=== PATIENT | male | born 1995 | race Caucasian/White ===

== ENCOUNTER 2017-12-26 20:06 | Emergency (ER) | payer OTHER ==
--- NOTE | 2017-12-26 20:16 | ER Report ---
History and Physical Time Seen By MD: 20:16 Hx. of Stated Complaint: CUT LEFT THUMB DOING DISHES HPI/ROS CHIEF COMPLAINT: Laceration HISTORY OF PRESENT ILLNESS: This is a 22-year-old male who presents to the emergency department for laceration to his left thumb. Patient states that about 20-30 minutes prior to arrival he was washing a wine glass it broke lacerating the base of his left some on the palmar side. The laceration does appear to have lacerated the flexor tendon. Bleeding is controlled. No other lacerations or injuries identified. REVIEW OF SYSTEMS: Respiratory: No cough, no dyspnea. Cardiovascular: No chest pain, no palpitations. Gastrointestinal: No vomiting, no abdominal pain. Musculoskeletal: No back pain. Integument: As above. Allergies: Coded Allergies: No Known Drug Allergies (Unverified , 12/26/17) Home Meds Active Scripts Cephalexin 500 Mg Tab (KEFLEX 500 MG TAB) 500 Mg Tablet, 500 MG PO Q6H, #28 TAB 0 Refills Prov:KUSUM HAWK BENEFITS TECHNICIAN-BC 12/26/17 Past Medical/Surgical History The patient has a past medical surgical history of wisdom tooth extraction. Reviewed Nurses Notes: Yes Constitutional Vital Sign - Last 24 Hours 12/26/17 12/26/17 12/26/17 12/26/17 20:08 20:11 20:21 20:30 Temp 97.9 Pulse 98 101 Resp 16 B/P (MAP) 146/97 (113) 146/97 142/95 (111) Pulse Ox 96 97 O2 Delivery Room Air 12/26/17 12/26/17 12/26/17 12/26/17 20:36 20:51 21:00 21:06 Pulse 97 97 107 B/P (MAP) 140/94 (109) Pulse Ox 97 96 96 12/26/17 12/26/17 12/26/17 21:21 21:30 21:36 Pulse 99 101 B/P (MAP) 129/100 (110) Pulse Ox 97 95 Physical Exam General Appearance: The patient is alert, has no immediate need for airway protection and no current signs of toxicity. Eyes: Pupils equal and round no injection. Respiratory: Chest is non tender, lungs are clear to auscultation. Cardiac: regular rate and rhythm Gastrointestinal: Abdomen is soft and non tender, no masses, bowel sounds normal. Musculoskeletal: Neck: Neck is supple and non tender. Extremities have full range of motion and are non tender. Skin: 2.5cm Laceration to the palmar side of the left thumb at the proximal phalanx. The wound is very deep, bleeding is controlled. There is no flexion noted. Distal thumb. Laceration of the flexor tendon. DIFFERENTIAL DIAGNOSIS: After history and physical exam differential diagnosis was considered for laceration, laceration of flexor tendon. Medical Decision Making EKG/Imaging Imaging Location: [facility] Patient: Madison Ferreira : 1995 Visit/Account:[id number] Date of Sevice: 12/26/2017 INDICATION: eval for FB. Cut with glass near the first MCP joint. Evaluate for foreign body. DATE: 12/26/2017 8:49 PM. TECHNIQUE: HAND COMPLETE LEFT COMPARISON: None FINDINGS: A laceration is suggested near the first MCP joint. There is no radiopaque foreign body. No fracture or dislocation. IMPRESSION: No radiopaque foreign body. Report Dictated By: John Lara MD at 12/26/2017 8:49 PM Report E-Signed By: John Lara MD at 12/26/2017 8:50 PM WSN:[id number] ED Course/Re-evaluation ED Course The patient was admitted to room. A history and physical obtained. Differential diagnoses were considered. A hand x-ray was negative for any acute foreign bodies. The flexor tendon was lacerated, I did speak with Dr. Cronin the orthopedist on-call, he said to go ahead and loosely suture the wound, dressed the wound placed in a splint and have him follow-up with the orthopedic clinic tomorrow. They will be able to evaluate and repair the tendon. I did repair the wound as noted below. Patient was given a Keflex in the emergency department. Patient was also sent home with prescription for Keflex, Dr. Cronin was in agreement with this as well. The thumb was splinted. 12/26/2017 9:26:41 pm I did speak with Dr. Cronin me the orthopedist postal transportation clerk regarding the patient's case, I did tell him the patient lacerated the left thumb flexor tendon. He said loosely close the wound, splint the thumb and they will see the patient tomorrow for the tendon repair. I did inform the patient. Procedure: Laceration repair. Verbal consent was obtained from the patient. The 2.5cm Laceration to the palmar side of the left thumb at the proximal phalanx was anesthetized in the usual fashion. The wound was scrubbed, draped and explored to its base with a gloved finger. There were deep structures involved. Complete tendon laceration was identified. The wound was repaired with 4, 5-0 Ethilon, simple interrupted sutures.. The wound repair was simple. The procedure was performed by myself. The wound was loosely closed, the [facility]. Decision to Disposition Date: Dec 26, 2017 Decision to Disposition Time: 21:29 Depart Departure Latest Vital Signs Vital Signs Date Time Temp Pulse Resp B/P (MAP) Pulse Ox O2 Delivery O2 Flow Rate FiO2 12/26/17 21:36 101 95 12/26/17 21:30 129/100 (110) 12/26/17 20:11 97.9 16 Room Air Impression: Primary Impression: Laceration of left thumb with tendon involvement Condition: Improved Disposition: HOME OR SELF-CARE Referrals: LORI LILLY MD 1 Day New Scripts Cephalexin 500 Mg Tab (KEFLEX 500 MG TAB) 500 Mg Tablet 500 MG PO Q6H, #28 TAB 0 Refills Prov: KUSUM HAWK [employer] BENEFITS TECHNICIAN-BC 12/26/17 Patient Instructions: Acute Wound Care (ED), Tendon Laceration (ED) Additional Instructions: You have lacerated the flexor tendon of your left thumb, I have loosely repaired the skin, you will need to call [facility] in the AM and follow up with One of the hand specialists for repair. Keep the dressing and splint on until you follow up in the AM. Take the antibiotics as prescribed. Return to the ED for any other concerns or worsening symptoms. Drink plenty of water. Get plenty of rest. Take Ibuprofen or Tylenol as needed for pain. Problem Qualifiers Primary Impression: Laceration of left thumb with tendon involvement Encounter type: initial encounter Qualified Codes: S61.012A - Laceration without foreign body of left thumb without damage to nail, initial encounter; S66.922A - Laceration of unspecified muscle, fascia and tendon at wrist and hand level, left hand, initial encounter KUSUM HAWK BENEFITS TECHNICIAN-BC Dec 26, 2017 20:16
[2017-12-26] MEDS ORDERED: DIPHTH/TETANUS/ACEL. PERTUSSIS IM ONLY ONE (20:25)
--- NOTE | 2017-12-26 20:53 | RADIOLOGY IMAGING REPORT ---
FACILITY: [facility] [place] PATIENT NAME: Madison Ferreira : 1995 MR: [id number] V: [id number] EXAM DATE: ORDERING PHYSICIAN: KUSUM HAWK TECHNOLOGIST: Location: [facility] [place] Patient: Madison Ferreira : 1995 Visit/Account:[id number] Date of Sevice: 12/26/2017 INDICATION: eval for FB. Cut with glass near the first MCP joint. Evaluate for foreign body. DATE: 12/26/2017 8:49 PM. TECHNIQUE: HAND COMPLETE LEFT COMPARISON: None FINDINGS: A laceration is suggested near the first MCP joint. There is no radiopaque foreign body. No fracture or dislocation. IMPRESSION: No radiopaque foreign body. Report Dictated By: John Lara MD at 12/26/2017 8:49 PM Report E-Signed By: John Lara MD at 12/26/2017 8:50 PM WSN:[id number]
[2017-12-26 21:30] VITALS: BP 129/100
[2017-12-26] MEDS ORDERED: CEPH500T7 PO (21:31)
[2017-12-26] MEDS ORDERED: CEPHALEXIN 500 MG CAP TH 2 CAP/BOTTLE PO ONE (21:35)
== END 2017-12-26 21:49 | disposition home or self-care (01) ==
LOC: ER 20:10
DX: S61.012A Laceration without foreign body of left thumb without damage to nail, initial encounter (principal); W25.XXXA Contact with sharp glass, initial encounter
CPT/HCPCS: 90471; 90715; 99283